=== PATIENT | male | born 1980 | race Caucasian/White ===

== ENCOUNTER 2017-10-04 21:48 | Emergency (ER) | payer SELFPAY ==
[2017-10-04 22:02] VITALS: BP 132/67
--- NOTE | 2017-10-04 23:19 | ER Document Report ---
HPI - HPI Pain Level: 1 Context: Sinus congestion, rhinitis, postnasal drip and nonproductive cough for the past 10 days. Patient admits to history of seasonal allergies but denies any history of asthma, COPD. Patient states that he has not been taking anything besides his daily Claritin but denies any other cgxb-pyk-apjdxii medications for sinuses. Patient states he is intermittently taking DayQuil and NyQuil without any significant improvement. He denies any shortness of breath, dyspnea on exertion, chest pain, nausea, vomiting, abdominal pain, fevers or chills. Patient admits to using a vape - EENT EENT: REPORTS: Sore Throat, Ear Pain - R ear pain - REPRODUCTIVE Reproductive: DENIES: : Past Medical History - Social History Smoking Status: Unknown if Ever Smoked Family History: Reviewed & Not Pertinent Patient has suicidal ideation: No Patient has homicidal ideation: No - Past Medical History Cardiac Medical History: Reports: Hx Heart Murmur Renal/ Medical History: Denies: Hx Peritoneal Dialysis Past Surgical History: Reports: Hx Abdominal Surgery - hernia repair, Hx Orthopedic Surgery - L ankle - Immunizations Hx Diphtheria, Pertussis, Tetanus Vaccination: Yes Vertical Provider Document - CONSTITUTIONAL Agree With Documented VS: Yes Notes: PHYSICAL EXAM GENERAL: Alert, interacts well. HEENT: NCAT, pale conjunctiva, extraocular movements intact, pupils PERRL. external ear normal, no evidence of external auditory canal tenderness, blood/ drainage, cerumen impaction, TM intact without evidence of effusion, bulging, injection, MMM, Uvula midline. Airway patent. No evidence of tonsillar enlargement, peritonsillar abscess, retropharyngeal abscess. NECK: Full range of motion. Supple. Trachea midline. LUNGS: Clear to auscultation bilaterally, no wheezes, rales, or rhonchi. No respiratory distress. HEART: Regular rate and rhythm. No murmurs, gallops, or rubs. NEUROLOGICAL: Alert and oriented x4. Normal speech. PSYCH: Normal affect, normal mood. SKIN: Warm, dry, normal turgor. No rashes or lesions noted. - INFECTION CONTROL TRAVEL OUTSIDE OF THE [place] IN LAST 30 DAYS: No Course - Re-evaluation Re-evalutation: 10/04/17 23:18 Presentation is most consistent with a viral upper respiratory infection. Patient is overall well appearance, vitals within normal limits, well-hydrated. Patient denies any headache, neck pain, and has no evidence of meningismus on examination. Lungs are clear bilaterally. No evidence of respiratory distress. Based on clinical exam and history, I do not suspect an acute pneumonia, meningitis, strep pharyngitis, or an acute encephalitis. No laboratory or imaging testing is indicated at this time. Will discharge patient with return precautions and followup recommendations. They are in agreement this plan have verbalized understanding return precautions. - Vital Signs Vital signs: Temp Pulse Resp BP Pulse Ox 98.4 F 83 20 132/67 H 97 10/04/17 22:00 10/04/17 22:00 10/04/17 22:00 10/04/17 22:00 10/04/17 22:00 Discharge - Discharge Clinical Impression: URI (upper respiratory infection) Condition: Good Disposition: HOME, SELF-CARE Additional Instructions: Your symptoms are most likely due to a viral infection it should resolve over the next 7-14 days. You should take dpyb-dgm-zavuupv guanfacine per bottle instructions to help thin the mucus. For nasal congestion: I would recommend that you get nzpg-myx-ljvxkqh oxymetazoline also known is afrin. Use only per bottle instructions and be sure to never use this for more than 3 days if you can develop severe rebound congestion. You may also use tylenol or ibuprofen as needed for aches and thorat discomfort. Please be sure to drink plenty of fluids and get rest. Return to the emergency department he began having difficulty breathing, chest pain, persistent vomiting, or any other symptoms that are concerning to you. . Please utilize xwtr-fsl-cvmiaoz Claritin-D or Annalise-D or Zyrtec-D. To sleep tonight you can utilize nhsm-zxo-ichsoyw Benadryl as directed on the bottle
== END 2017-10-04 23:25 | disposition home or self-care (01) ==
LOC: ER 21:48
DX: J06.9 Acute upper respiratory infection, unspecified (principal); J30.2 Other seasonal allergic rhinitis; Z79.899 Other long term (current) drug therapy; R09.81 Nasal congestion; R09.82 Postnasal drip; J02.9 Acute pharyngitis, unspecified; R05 Cough; F17.290 Nicotine dependence, other tobacco product, uncomplicated; H92.01 Otalgia, right ear
CPT/HCPCS: 99282

== ENCOUNTER → 2019-04-15 | Outpatient (CLI) | payer BC ==
--- NOTE | 2019-04-15 12:08 | RADIOLOGY REPORT (SQ) ---
EXAM DESCRIPTION: MRI RT UPPER JOINT WITHOUT COMPLETED DATE/TIME: 04/15/2019 8:00 am REASON FOR STUDY: PAIN IN RIGHT SHOULDER (M25.511) M25.511 PAIN IN RIGHT SHOULDER COMPARISON: Right shoulder films 04/11/2014, 03/20/2014 TECHNIQUE: Non arthrogram right shoulder images acquired and stored on PACS. Multiplanar imaging to include fat sensitive sequences such as T1, water sensitive sequences such as FST2/STIR, cartilage se nsitive sequences such as FSPD/gradient-echo sequences. LIMITATIONS: None. FINDINGS: BONE MARROW AND CORTEX: A prominent subcortical cyst is present along the right humeral he ad greater tuberosity at anterior edge of the supraspinatus tendon attachment. This is best shown on coronal image 9 and sagittal images 2-5. JOINT OR BURSAL EFFUSION: Trace fluid in the subacromial/subdeltoid bursa. No significant glenohumer al joint effusion GLENO-HUMERAL ARTICULATION: Normal articulation. No subluxation. No cystic change. No osteophytes or cartilage loss. ACROMION AND AC JOINT: Type 2 acromion with mild AC joint hypertrophy, edema in the distal clavicle and acromion, bony spurring mildly narrowing the subacromial space. Trace fluid in the subacromial/s ubdeltoid bursa ROTATOR CUFF AND INTERVAL: Diffuse the thickening and increased signal throughout the distal supraspi natus tendon from tendinopathy best shown on coronal image 9 and sagittal images 3-7. Undersurface t endinopathy along the distal infraspinatus tendon is seen on coronal image 12-14 and sagittal image 4 . Subscapularis is intact. Rotator interval is indistinct. Intra-articular long head biceps tendon is not well seen LABRUM AND BICEPS LABRAL COMPLEX: Intra-articular long head biceps tendon not identified. There is a superior labral tear extending anteriorly and posteriorly without paralabral cyst, best shown on a xial images 4-8. REMAINDER OF LABRUM AND IGHL : No gross tear or paralabral cyst formation. Labral evaluation is less than optimal without joint distention. No thickening of IGHL to suggest adhesive capsulitis. PERIARTICULAR AND ADJACENT SOFT TISSUES: No masses or abnormal nodes. OTHER: No other significant finding. IMPRESSION: Nonvisualization long-head biceps tendon, worrisome for tear. Rotator interval tear. Superior labral tear extending anteriorly and posteriorly without paralabral cyst Tendinopathy in the distal supra and infraspinatus tendons. TECHNICAL DOCUMENTATION: JOB ID: [id number] [employer]- All Rights Reserved Reading location - IP/workstation name: [email or web address]
== END ==
LOC: RAD 07:10
PROVIDERS: ATTEND Physician Assistant
DX: M25.511 Pain in right shoulder (principal)

== ENCOUNTER → 2019-08-13 | Outpatient (CLI) | payer BC ==
--- NOTE | 2019-08-13 10:47 | RADIOLOGY REPORT (SQ) ---
EXAM DESCRIPTION: FOOT LEFT COMPLETE IMAGES COMPLETED DATE/TIME: 08/13/2019 10:30 am REASON FOR STUDY: LT FOOT PAIN M79.672 PAIN IN LEFT FOOT COMPARISON: None. NUMBER OF VIEWS: Three views. TECHNIQUE: AP, lateral and oblique radiographic images acquired of the left foot. LIMITATIONS: None. FINDINGS: MINERALIZATION: Normal. BONES: Subacute fracture of the diaphysis of the 2nd metatarsal with surrounding fluffy immature call us. There is no other fracture JOINTS: The normal tarsometatarsal alignment is preserved. 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 SOFT TISSUES: Soft tissue swelling over the dorsal aspect of the forefoot. OTHER: No other finding. IMPRESSION: Subacute fracture of the diaphysis of the 2nd metatarsal with surrounding fluffy immatur e callus. TECHNICAL DOCUMENTATION: JOB ID: [id number] 2010 [employer]- All Rights Reserved Reading location - IP/workstation name: [email or web address]
== END ==
LOC: OD 10:20
PROVIDERS: ATTEND Physician Assistant
DX: S92.322A Displaced fracture of second metatarsal bone, left foot, initial encounter for closed fracture (principal); X58.XXXA Exposure to other specified factors, initial encounter; M19.072 Primary osteoarthritis, left ankle and foot

== ENCOUNTER → 2019-08-19 | Outpatient (CLI) | payer BC ==
--- NOTE | 2019-08-19 15:44 | RADIOLOGY REPORT (SQ) ---
EXAM DESCRIPTION: CT LT LOWER EXTREMITY WITHOUT IMAGES COMPLETED DATE/TIME: 08/19/2019 3:19 pm REASON FOR STUDY: OTHER SPECIFIED DISORDERS OF BONE, ANKLE AND FOOT M89.8X7 OTHER SPECIFIED DISORDE RS OF BONE, ANKLE AND FOOT COMPARISON: Left foot films 08/13/2019 TECHNIQUE: CT scan of the left foot performed without intravenous contrast. Images reviewed with so ft tissue and bone windows. Reconstructed coronal and sagittal MPR images reviewed. All images stor ed on PACS. All CT scanners at this facility use dose modulation, iterative reconstruction, and/or weight based d osing when appropriate to reduce radiation dose to as low as reasonably achievable (ALARA). [facility]: Dose Right [facility]: CareDose [facility]: Dose Right [facility]: Teradose 4D [facility]: [employer] RADIATION DOSE: CT Rad equipment meets quality standard of care and radiation dose reduction techniq ues were employed. CTDIvol: 4.6 mGy. DLP: 105 mGy-cm. mGy. LIMITATIONS: None. FINDINGS: Overall normal bone density. A healing 2nd metatarsal midshaft fracture is present with surrounding bony callus best shown on sagi ttal image 19. This correlates with plain film findings from 08/13/2019. No other acute or subacute fractures are identified. There is bony remodeling along the distal tibia and fibula from old healed injury with syndesmosis al bobby the interosseous ligament region, best shown on axial image 21. Old well corticated avulsion fragment off the lateral talus at the fibulotalar ligament attachment ax ial image 31. There is moderate joint space narrowing and bony spurring at the posterior subtalar joint calcaneonav icular joint. Moderate-sized plantar calcaneal spur, small dorsal calcaneal spur. No radiopaque foreign body, no soft tissue gas. Limited view of the major tendons at the ankle joint are intact. IMPRESSION: Healing nondisplaced 2nd metatarsal midshaft fracture TECHNICAL DOCUMENTATION: JOB ID: [id number] Quality ID # [id number]: Final reports with documentation of one or more dose reduction techniques (e.g., Au tomated exposure control, adjustment of the mA and/or kV according to patient size, use of iterative reconstruction technique) 2010 [employer]- All Rights Reserved Reading location - IP/workstation name: [email or web address]
== END ==
LOC: RAD 14:56
PROVIDERS: ATTEND Physician Assistant
DX: S92.325D Nondisplaced fracture of second metatarsal bone, left foot, subsequent encounter for fracture with routine healing (principal); X58.XXXD Exposure to other specified factors, subsequent encounter; M77.32 Calcaneal spur, left foot; M89.8X7 Other specified disorders of bone, ankle and foot

== ENCOUNTER 2020-01-28 13:41 | Emergency (ER) | payer BC ==
[2020-01-28] MEDS ORDERED: MECLIZINE HCL 25 MG TABLET PO ONE (14:36)
--- NOTE | 2020-01-28 14:37 | ER Document Report ---
ED Medical Screen (RME) - General Stated Complaint: DIZZY/WEAKNESS Time Seen by Provider: 01/28/20 14:34 Primary Care Provider: KATE PRADO PA-C [Primary Care Provider] - Follow up as needed Notes: Patient states he was working today and felt dizzy. Patient states whenever he became dizzy the room was spinning he felt hot and became diaphoretic. Patient states he had about 3 of these episodes today prior to deciding to come get casey luated. Patient denies any chest pain or headache. Patient denies any shortness of breath. No nausea or vomiting. Patient denies any significant underlying medical problems. I have greeted and performed a rapid initial assessment of this patient. A comprehensive ED assessment and evaluation of the patient, analysis of test results and completion of the medical decision making process will be conducted by additional ED providers. TRAVEL OUTSIDE OF THE [place] IN LAST 30 DAYS: No - Related Data Allergies/Adverse Reactions: acetaminophen [From Percocet] Allergy (Verified 10/04/17 21:54) oxycodone HCl [From Percocet] Allergy (Verified 10/04/17 21:54) Past Medical History - Past Medical History Cardiac Medical History: Reports: Hx Heart Murmur Renal/ Medical History: Denies: Hx Peritoneal Dialysis Past Surgical History: Reports: Hx Abdominal Surgery - hernia repair, Hx Orthopedic Surgery - L ankle - Immunizations Hx Diphtheria, Pertussis, Tetanus Vaccination: Yes Physical Exam - Vital signs Vitals: Temp Pulse Resp BP Pulse Ox 98.0 F 78 16 149/72 H 98 01/28/20 14:00 01/28/20 14:00 01/28/20 14:00 01/28/20 14:00 01/28/20 14:00 - Respiratory Respiratory status: No respiratory distress Breath sounds: Normal - Cardiovascular Rhythm: Regular Heart sounds: S1 appreciated, S2 appreciated Course - Vital Signs Vital signs: Temp Pulse Resp BP Pulse Ox 98.0 F 78 16 149/72 H 98 01/28/20 14:00 01/28/20 14:00 01/28/20 14:00 01/28/20 14:00 01/28/20 14:00 Doctor's Discharge - Discharge Referrals: KATE PRADO PA-C [Primary Care Provider] - Follow up as needed
[2020-01-28 15:09] LABS: ABSOLUTE BASOPHILS # (AUTO) 0.1 10^3/uL (0.0-0.2); ABSOLUTE EOSINOPHILS # (AUTO) 0.1 10^3/uL (0.0-0.6); ABSOLUTE LYMPHOCYTES (AUTO) 1.9 10^3/uL (0.5-4.7); ABSOLUTE MONOCYTES (AUTO) 0.7 10^3/uL (0.1-1.4); ABSOLUTE NEUT (AUTO) 5.1 10^3/uL (1.7-8.2); BASOPHILS % (AUTO) 0.7 % (0-2); EOSINOPHILS % (AUTO) 0.7 % (0-6); HEMATOCRIT 44.7 % (37.9-51.0); HEMOGLOBIN 15.9 g/dL (13.5-17.0); LYMPHOCYTES % (AUTO) 24.5 % (13-45); MEAN CORPUSCULAR HEMOGLOBIN 30.4 pg (27.0-33.4); MEAN CORPUSCULAR HGB CONC 35.5 g/dL (32.0-36.0); MEAN CORPUSCULAR VOLUME 86 fl (80-97); PLATELET COUNT 324 10^3/uL (150-450); RED BLOOD COUNT 5.22 10^6/uL (4.35-5.55); RED CELL DISTRIBUTION WIDTH 13.1 % (11.5-14.0); SEGMENTED NEUTROPHILS % (AUTO) 65.1 % (42-78); TOTAL CELLS COUNTED % (AUTO) 100 %; WHITE BLOOD COUNT 7.8 10^3/uL (4.0-10.5)
--- NOTE | 2020-01-28 15:26 | RADIOLOGY REPORT (SQ) ---
EXAM DESCRIPTION: CHEST SINGLE VIEW IMAGES COMPLETED DATE/TIME: 01/28/2020 3:09 pm REASON FOR STUDY: dizziness COMPARISON: None. EXAM PARAMETERS: NUMBER OF VIEWS: One view. TECHNIQUE: Single frontal radiographic view of the chest acquired. RADIATION DOSE: NA LIMITATIONS: None. FINDINGS: LUNGS AND PLEURA: No opacities, masses or pneumothorax. No pleural effusion. MEDIASTINUM AND HILAR STRUCTURES: No masses. Contour normal. HEART AND VASCULAR STRUCTURES: Heart normal in size. Normal vasculature. BONES: No acute findings. HARDWARE: None in the chest. OTHER: No other significant finding. IMPRESSION: NO ACUTE RADIOGRAPHIC FINDING IN THE CHEST. TECHNICAL DOCUMENTATION: JOB ID: [id number] 2010 [employer]- All Rights Reserved Reading location - IP/workstation name: [email or web address]
[2020-01-28 15:28] LABS: ALBUMIN 4.9 g/dL (3.5-5.0); ALKALINE PHOSPHATASE 66 U/L (38-126); ANION GAP 11 (5-19); ASPARTATE AMINO TRANSFERASE 26 U/L (17-59); BILIRUBIN,DIRECT 0.2 mg/dL (0.0-0.4); BILIRUBIN,TOTAL 0.4 mg/dL (0.2-1.3); BLOOD UREA NITROGEN 14 mg/dL (7-20); CALCIUM 9.9 mg/dL (8.4-10.2); CARBON DIOXIDE 28 mmol/L (22-30); CHLORIDE 102 mmol/L (98-107); GLUCOSE 88 mg/dL (75-110); NEONATAL BILIRUBIN RESULT 0.2 mg/dL (0.1-1.1); POTASSIUM 4.4 mmol/L (3.6-5.0); TOTAL PROTEIN 7.8 g/dL (6.3-8.2)
--- NOTE | 2020-01-28 17:52 | EKG REPORT ---
SEVERITY:- ABNORMAL ECG - SINUS RHYTHM INCOMPLETE RIGHT BUNDLE BRANCH BLOCK : Confirmed by: Efrain Castro MD 28-Jan-2020 17:52:17
[2020-01-28 18:08] LABS: APPEARANCE,URINE CLEAR; BILIRUBIN,URINE NEGATIVE (NEGATIVE); COLOR,URINE STRAW; GLUCOSE, URINE NEGATIVE (NEGATIVE); KETONES,URINE NEGATIVE (NEGATIVE); LEUKOCYTE ESTERASE,URINE NEGATIVE (NEGATIVE); NITRITE,URINE NEGATIVE (NEGATIVE); PROTEIN,URINE NEGATIVE (NEGATIVE); URINE SPECIFIC GRAVITY 1.009; UROBILINOGEN,URINE NEGATIVE mg/dL (<2.0)
--- NOTE | 2020-01-28 18:32 | ER Document Report ---
HPI - HPI Time Seen by Provider: 01/28/20 14:34 Notes: 39-year-old male patient presents emergency department chief complaint of dizziness. Patient reports it felt like the room is spinning around him and he felt hot and got diaphoretic. He states he had 3 episodes today. He reports he wanted to get checked out today. He denies any chest pain, shortness of breath or headache. He reports he is otherwise healthy and does not take any prescription medications daily. - ROS Systems Reviewed and Negative: Yes All other systems reviewed and negative - CONSTITUTIONAL Constitutional: DENIES: Fever, Chills - NEURO Neurology: REPORTS: Headache - gone now post medication, Dizzinesss / Vertigo - x3 episodes at work, resolved - REPRODUCTIVE Reproductive: DENIES: : Past Medical History - General Information source: Patient - Social History Smoking Status: Never Smoker Frequency of alcohol use: None Drug Abuse: None Family History: Reviewed & Not Pertinent - Past Medical History Cardiac Medical History: Reports: Hx Heart Murmur Renal/ Medical History: Denies: Hx Peritoneal Dialysis Past Surgical History: Reports: Hx Abdominal Surgery - hernia repair, Hx Orthopedic Surgery - L ankle - Immunizations Hx Diphtheria, Pertussis, Tetanus Vaccination: Yes Vertical Provider Document - CONSTITUTIONAL Notes: PHYSICAL EXAMINATION: GENERAL: Well-appearing, well-nourished and in no acute distress. HEAD: Atraumatic, normocephalic. EYES: Pupils equal round and reactive to light, extraocular movements intact, sclera anicteric, conjunctiva are normal. ENT: Nares patent, oropharynx clear without exudates. Moist mucous membranes. NECK: Normal range of motion, supple without lymphadenopathy LUNGS: Breath sounds clear to auscultation bilaterally and equal. No wheezes rales or rhonchi. HEART: Regular rate and rhythm without murmurs ABDOMEN: Soft, nontender, nondistended abdomen. No guarding, no rebound. No masses appreciated. Musculoskeletal: Normal range of motion, no pitting or edema. No cyanosis. NEUROLOGICAL: Cranial nerves grossly intact. Normal speech, normal gait. Normal sensory, motor exams PSYCH: Normal mood, normal affect. SKIN: Warm, Dry, normal turgor, no rashes or lesions noted. - INFECTION CONTROL TRAVEL OUTSIDE OF THE [place] IN LAST 30 DAYS: No Course - Re-evaluation Re-evalutation: Patient appears well, nontoxic, vital signs reviewed and are within normal limits. Patient's work-up today has been reassuring. He feels much improved after administration of the meclizine here in the emergency department. He will be given a prescription for this. He will be discharged home with ED return precautions. Patient verbalizes understanding and agreement with this plan.\ - Vital Signs Vital signs: Temp Pulse Resp BP Pulse Ox 98.0 F 78 16 149/72 H 98 01/28/20 14:00 01/28/20 14:00 01/28/20 14:00 01/28/20 14:00 01/28/20 14:00 - Laboratory Result Diagrams: 01/28/20 14:47 01/28/20 14:47 - EKG Interpretation by Nm EKG shows normal: Sinus rhythm - Rate 58, sinus bradycardia, right bundle branch block noted. Discharge - Discharge Clinical Impression: Vertigo Condition: Stable Disposition: HOME, SELF-CARE Instructions: Vertigo ([facility]) Additional Instructions: Please take medication as prescribed. If your symptoms do not fully resolve please follow-up with ENT. Their phone number is below. Return to the emergency department any new or worsening concerns. Prescriptions: Meclizine HCl [Antivert 25 mg Tablet] 25 mg PO TID PRN #21 tablet PRN Reason: Referrals: KATE PRADO PA-C [ALLIED HEALTH PROFESSIONAL] - Follow up as needed
[2020-01-28 18:34] VITALS: BP 145/89
== END 2020-01-28 18:31 | disposition home or self-care (01) ==
LOC: ER 13:41
DX: R42 Dizziness and giddiness (principal); R61 Generalized hyperhidrosis; R51.9 Headache, unspecified
CPT/HCPCS: 36415; 71045; 80053; 81001; 83735; 84484; 85025; 93005; 93010; 99285